=== PATIENT | female | born 1995 | race Asian ===

== ENCOUNTER 2017-11-27 07:50 | Inpatient (IN) | payer SELFPAY ==
[~2017-11-27] VITALS: Ht 160 cm; Wt 83.5 kg
[2017-11-27] MEDS ORDERED: TERBUTALINE 1 MG/ML VIAL SUBQ ONE (08:06)
[2017-11-27] MEDS ORDERED: BETAMETH ACET/BETAMETH NA PH 30 MG/5 ML VIAL IM ONE ×2 (08:06→20:05)
[2017-11-27] MEDS ORDERED: TERBUTALINE 1 MG/ML VIAL SUBQ SCH (09:09)
[2017-11-27 09:21] VITALS: BP_SYST 127; BP_SYST 138; BP_DIAS 86; BP_DIAS 94
[2017-11-27] MEDS ORDERED: OXYTOCIN 20 UNITS in LACTATED RINGERS 1,000 ML IV SCH (09:58)
[2017-11-27] MEDS ORDERED: METHYLERGONOVINE 0.2 MG/ML AMP IM PRN (10:00)
[2017-11-27] MEDS ORDERED: IBUPROFEN 800 MG TAB PO PRN (10:00)
[2017-11-27] MEDS ORDERED: BETAMETH ACET/BETAMETH NA PH 30 MG/5 ML VIAL IM SCH (10:00)
[2017-11-27] MEDS ORDERED: CARBOPROST 250 MCG/ML AMP IM PRN (10:00)
[2017-11-27] MEDS ORDERED: NALBUPHINE 10 MG/ML AMP IVP PRN (10:00)
[2017-11-27] MEDS ORDERED: PROMETHAZINE 25 MG/ML VIAL IVP PRN (10:00)
--- NOTE | 2017-11-27 10:18 | NUR ---
PATIENT HAS BEEN SCREENED AND CATEGORIZED LOW NUTRITION RISK. PATIENT WILL BE SEEN WITHIN 7 DAYS OF ADMISSION. 12/04/17 JOSE RAMSEY MBA, RD
[2017-11-27] MEDS ORDERED: OXYTOCIN 10 UNITS/ML VIAL IM SCH (11:00)
[2017-11-27] MEDS: LACTATED RINGERS 1,000 ML IV SCH ×3 (11:21→23:45)
[2017-11-27] MEDS ORDERED: MAG SULF 20 GM/H2O PREMIX DRIP 500 ML IV ONE ×2 (11:35→21:20)
[2017-11-27] MEDS ORDERED: BUPIVACAINE 0.125%/NS PREMIX 250 ML EPI SCH (11:35)
[2017-11-27 11:42] LABS: BASOPHILS # (AUTO) 0.1 K/uL (0.00-0.22); BASOPHILS % (AUTO) 0.7 % (0.0-2.0); EOSINOPHILS # (AUTO) 0.1 K/uL (0-0.4); EOSINOPHILS % (AUTO) 0.8 % (0.0-4.0); HEMOGLOBIN 12.1 g/dL (12.0-16.0); LYMPHOCYTES # (AUTO) 1.1 K/uL (2.5-16.5); LYMPHOCYTES % (AUTO) 6.8 % (20.5-51.1); MEAN CORPUSCULAR HEMOGLOBIN 30 pg (27-31); MEAN CORPUSCULAR HGB CONC 34 g/dL (33-37); MEAN CORPUSCULAR VOLUME 90 fL (80-94); MONOCYTES # (AUTO) 0.3 K/uL (0.8-1.0); MONOCYTES % (AUTO) 1.7 % (1.7-9.3); NEUTROPHILS # (AUTO) 13.9 K/uL (1.8-7.7); PLATELET COUNT (AUTO) 48 K/uL (140-450); RED BLOOD CELL COUNT(AUTO) 3.99 MIL/uL (4.20-5.40); RED CELL DISTRIBUTION WIDTH 12.6 % (11.6-13.7); WHITE BLOOD COUNT (AUTO) 15.5 K/uL (4.8-10.8)
[2017-11-27] MEDS ORDERED: AMPICILLIN 2,000 MG in NACL 0.9% 100 ML IV SCH (12:00)
[2017-11-27 12:03] LABS: MAGNESIUM 1.9 mg/dL (1.8-2.4)
[2017-11-27 12:04] LABS: ANION GAP 18.6 (8-16); CARBON DIOXIDE 19.7 mmol/L (21-32); CREATININE 1.2 mg/dL (0.6-1.3); POTASSIUM 4.3 mmol/L (3.5-5.1)
[2017-11-27 12:10] LABS: ALBUMIN 2.4 g/dL (3.4-5.0); TOTAL BILIRUBIN 0.6 mg/dL (0.0-1.0)
[2017-11-27 12:11] LABS: PROTHROMBIN TIME 8.7 secs (10.8-13.4)
[2017-11-27] MEDS: MAG SULF 20 GM/H2O PREMIX DRIP 500 ML IV SCH ×2 (12:56→22:10)
[2017-11-27 13:35] LABS: BILIRUBIN,URINE 1+ (NEGATIVE); COLOR,URINE YELLOW (YELLOW); LEUKOCYTE ESTERASE ,URINE NEGATIVE (NEGATIVE); NITRITE, URINE NEGATIVE (NEGATIVE); PH,URINE 5.5 (5.0-9.0); UGLUCOSE TRACE (NEGATIVE)
[2017-11-27 13:37] LABS: APPEARANCE,URINE SLIGHTLY HAZY (CLEAR)
[2017-11-27 13:39] LABS: BLOOD, URINE 1+ (NEGATIVE); RBC,URINE 3-10 (FEW) /HPF (0-5); WBC,URINE 0-5 (RARE) /HPF (0-5)
[2017-11-27 13:40] LABS: URINE AMORPHOUS URATE 1+ /HPF (None Seen)
[2017-11-27] MEDS ORDERED: AMPICILLIN 2,000 MG VIAL ONE ×2 (14:28→22:05)
[2017-11-27] MEDS ORDERED: AMPICILLIN 1,000 MG VIAL IVP SCH (16:00)
[2017-11-27] MEDS ORDERED: LABETALOL 100 MG TAB PO SCH (17:20)
[2017-11-27] MEDS ORDERED: LABETALOL 100 MG TAB ONE (18:34)
[2017-11-27] MEDS ORDERED: PHYTONADIONE 10 MG/ML AMP IM STA (21:32)
[2017-11-27] MEDS ORDERED: PHYTONADIONE 10 MG/ML AMP ONE (21:49)
[2017-11-27] MEDS ORDERED: AMPICILLIN 2,000 MG in NACL 0.9% 100 ML IV STA (21:59)
[2017-11-27] MEDS ORDERED: PHYTONADIONE 10 MG/ML AMP SUBQ STA (22:04)
[2017-11-27 22:16] LABS: HEMOGLOBIN 11.8 g/dL (12.0-16.0); MEAN CORPUSCULAR HEMOGLOBIN 30 pg (27-31); MEAN CORPUSCULAR HGB CONC 34 g/dL (33-37); MEAN CORPUSCULAR VOLUME 90 fL (80-94); PLATELET COUNT (AUTO) 52 K/uL (140-450); RED BLOOD CELL COUNT(AUTO) 3.88 MIL/uL (4.20-5.40); RED CELL DISTRIBUTION WIDTH 12.8 % (11.6-13.7); WHITE BLOOD COUNT (AUTO) 19.5 K/uL (4.8-10.8)
[2017-11-27 23:18] LABS: LYMPHOCYTES % (MANUAL) 10 % (20-46); MONOCYTES % (MANUAL) 5 % (5-12)
[2017-11-27] MEDS ORDERED: PROMETHAZINE 25 MG/ML VIAL ONE (23:30)
[2017-11-27] MEDS ORDERED: NALBUPHINE HYDROCHLORIDE 10 MG/ML VIAL ONE (23:30)
[2017-11-28] MEDS ORDERED: BUPIVACAINE 0.125%/NS PREMIX 250 ML ONE (02:14)
[2017-11-28] MEDS ORDERED: OXYTOCIN 20 UNITS/LR PREMIX 1,000 ML IV ONE (02:53)
[2017-11-28] MEDS ORDERED: MISOPROSTOL 100 MCG TAB ONE (02:56)
[2017-11-28] MEDS ORDERED: MISOPROSTOL 100 MCG TAB RC PRN (03:00)
[2017-11-28] MEDS ORDERED: OXYTOCIN 10 UNITS/ML VIAL ONE (03:08)
[2017-11-28] MEDS ORDERED: LIDOCAINE MPF 1% - **ER/OR** 20 ML ONE (03:13)
[2017-11-28] MEDS ORDERED: IBUPROFEN 800 MG TAB PO PRN (03:55)
[2017-11-28] MEDS ORDERED: OXYTOCIN 10 UNITS/ML VIAL IM PRN (03:55)
[2017-11-28] MEDS ORDERED: METHYLERGONOVINE 0.2 MG/ML AMP IM PRN (03:55)
[2017-11-28] MEDS ORDERED: HYDROcodone/APAP 5/325 MG 1 TAB TAB PO PRN (03:55)
[2017-11-28] MEDS ORDERED: TEMAZEPAM 15 MG CAP PO PRN (03:55)
[2017-11-28] MEDS ORDERED: MEASLES, MUMPS, AND RUBELLA 1 VIAL SQVAC PRN (03:55)
[2017-11-28] MEDS ORDERED: BENZOCAINE/MENTHOL 20%-0.5% 60 GM CAN TP PRN (03:55)
[2017-11-28] MEDS ORDERED: oxyCODONE/APAP 5/325 MG 1 TAB TAB PO PRN (03:55)
[2017-11-28] MEDS ORDERED: ceFAZolin 1,000 MG VIAL ONE ×3 (05:04→21:35)
[2017-11-28] MEDS ORDERED: INFLUENZA VIRUS VACCINE QUAD 0.5 ML SYR IMVAC SCH (06:00)
[2017-11-28] MEDS ORDERED: LABETALOL 100 MG TAB ONE (06:13)
[2017-11-28] MEDS ORDERED: LABETALOL 100 MG TAB PO SCH ×2 (06:30→21:00)
[2017-11-28] MEDS ORDERED: MAG SULF 20 GM/H2O PREMIX DRIP 500 ML IV ONE (08:01)
[2017-11-28] MEDS: MAG SULF 20 GM/H2O PREMIX DRIP 500 ML IV SCH (08:03)
[2017-11-28 11:03] LABS: MAGNESIUM 8.6 mg/dL (1.8-2.4)
[2017-11-28] MEDS ORDERED: hydrALAZINE 20 MG/ML VIAL IM SCH (17:20)
[2017-11-28] MEDS ORDERED: hydrALAZINE 20 MG/ML VIAL ONE (17:25)
[2017-11-28 17:32] VITALS: BP 160/103
[2017-11-28] MEDS ORDERED: LABETALOL 200 MG TAB ONE (18:16)
[2017-11-28] MEDS ORDERED: DOCUSATE SOD/SENNA 50/8.6 MG 1 TAB PO SCH (21:00)
[2017-11-28] MEDS ORDERED: NIFEdipine 30 MG TABER PO STA (21:50)
[2017-11-28] MEDS ORDERED: NIFEdipine 30 MG TABER PO ONE (22:05)
[2017-11-29 01:49] LABS: BASOPHILS # (AUTO) 0.3 K/uL (0.00-0.22); BASOPHILS % (AUTO) 1.8 % (0.0-2.0); EOSINOPHILS % (AUTO) 0.2 % (0.0-4.0); HEMATOCRIT 29.7 % (36-48); HEMOGLOBIN 9.8 g/dL (12.0-16.0); LYMPHOCYTES # (AUTO) 2.5 K/uL (2.5-16.5); LYMPHOCYTES % (AUTO) 17.1 % (20.5-51.1); MEAN CORPUSCULAR HEMOGLOBIN 30 pg (27-31); MEAN CORPUSCULAR HGB CONC 33 g/dL (33-37); MEAN CORPUSCULAR VOLUME 91 fL (80-94); MONOCYTES # (AUTO) 1.1 K/uL (0.8-1.0); MONOCYTES % (AUTO) 7.2 % (1.7-9.3); NEUTROPHILS # (AUTO) 10.8 K/uL (1.8-7.7); NEUTROPHILS % (AUTO) 73.7 % (42.2-75.2); RED BLOOD CELL COUNT(AUTO) 3.27 MIL/uL (4.20-5.40); RED CELL DISTRIBUTION WIDTH 13.4 % (11.6-13.7); WHITE BLOOD COUNT (AUTO) 14.7 K/uL (4.8-10.8)
[2017-11-29 02:27] LABS: PROTHROMBIN TIME 9.2 secs (10.8-13.4)
[2017-11-29 02:30] LABS: PLATELET COUNT (AUTO) 84 K/uL (140-450)
[2017-11-29 06:45] LABS: HEMATOCRIT 30.3 % (36-48); HEMOGLOBIN 10.4 g/dL (12.0-16.0)
[2017-11-29] MEDS ORDERED: HYDROcodone/APAP 5/325 MG 1 TAB TAB ONE (08:13)
[2017-11-29] MEDS: NIFEdipine 30 MG TABER PO SCH ×2 (09:41→21:26)
[2017-11-30 11:28] LABS: RAPID PLASMA REAGIN NON-REACTIVE (Non Reactiv)
== END 2017-11-29 23:30 | disposition home or self-care (01) | DRG 774 ==
LOC: MLD 07:50 → OBSVTOIN 07:50 → MLD 10:35 → MFCC 11-29 10:40
PROVIDERS: ADMIT Obstetrics & Gynecology; ATTEND Obstetrics & Gynecology
PROC: 30233L1 Transfusion of Nonautologous Fresh Plasma into Peripheral Vein, Percutaneous Approach (ICD-10-PCS; 2017-11-27)
PROC: 10E0XZZ Delivery of Products of Conception, External Approach (ICD-10-PCS; principal; 2017-11-28)
PROC: 10907ZC Drainage of Amniotic Fluid, Therapeutic from Products of Conception, Via Natural or Artificial Opening (ICD-10-PCS; 2017-11-28)
PROC: 0W8NXZZ Division of Female Perineum, External Approach (ICD-10-PCS; 2017-11-28)
PROC: 00HU33Z Insertion of Infusion Device into Spinal Canal, Percutaneous Approach (ICD-10-PCS; 2017-11-28)
PROC: 3E0R3BZ Introduction of Anesthetic Agent into Spinal Canal, Percutaneous Approach (ICD-10-PCS; 2017-11-28)
PROC: 30233N1 Transfusion of Nonautologous Red Blood Cells into Peripheral Vein, Percutaneous Approach (ICD-10-PCS; 2017-11-28)
PROC: 30233R1 Transfusion of Nonautologous Platelets into Peripheral Vein, Percutaneous Approach (ICD-10-PCS; 2017-11-28)
PROC: 30233K1 Transfusion of Nonautologous Frozen Plasma into Peripheral Vein, Percutaneous Approach (ICD-10-PCS; 2017-11-28)
DX: O14.94 Unspecified pre-eclampsia, complicating childbirth (principal); O45.8X3 Other premature separation of placenta, third trimester; O99.02 Anemia complicating childbirth; D64.9 Anemia, unspecified; O99.824 Streptococcus B carrier state complicating childbirth; Z3A.35 35 weeks gestation of pregnancy; Z37.0 Single live birth; Z28.21 Immunization not carried out because of patient refusal; Z83.3 Family history of diabetes mellitus; Z82.49 Family history of ischemic heart disease and other diseases of the circulatory system
CPT/HCPCS: 36415; 80053; 81001; 82310; 83735; 85018; 85025; 85379; 85384; 85610; 85730; 86592; 86886; 86900; 86901; 86920; 87653-90; J0290; J0360; J0690; J0702; J2001; J2300; J2550; J2590; J3105; J3430; J3475; J3490; J7030; J7060; J7120; P9016; P9017; P9035